=== PATIENT | female | born 1995 | race Caucasian/White ===

== ENCOUNTER 2018-02-15 22:18 | Emergency (ER) | payer OTHER ==
--- OUTSIDE RECORDS SUMMARY | 2018-02-15 22:19 | XMS REPORT ---
:1995 Author Organization eClinicalWorks Care Team Providers Name Role Phone [place], [facility] Provider Role Unavailable Allergies, Adverse Reactions, Alerts Substance Reaction Event Type penicillin Info Not Available Drug Allergy Problems Problem Type Condition Code Onset Dates Condition Status Assessment Seasonal allergies J30.2 Active Assessment Bronchial spasm J98.01 Active Assessment Other chronic pain G89.29 Active Problem Other chronic pain G89.29 Active Problem GERD without esophagitis K21.9 Active Problem Seasonal allergies J30.2 Active Assessment Pain in right knee M25.561 Active Assessment GERD without esophagitis K21.9 Active Problem Bronchial spasm J98.01 Active Medications Medication Code Code Instructions Start End Status Dosage System Date Date Omeprazole [facility] 22609599486 40 MG Orally Dec 11, Active 1 capsule Once a day 2017 Albuterol [facility] [id number] (2.5 MG/3ML) Active 3 ml as Sulfate 0.083% needed Inhalation Three times a day Results No Known Results Summary Purpose eClinicalWorks Submission
--- NOTE | 2018-02-15 23:19 | ER ---
Nurse's Notes [facility] Name: Selina Page Age: 22 yrs Sex: Female : 1995 Arrival Date: 02/15/2018 Time: 22:21 Bed 18 Private MD: Diagnosis: Local infection of the skin and subcutaneous tissue, unspecified Presentation: 02/15 22:46 Presenting complaint: Patient states: cyst to back of the neck infected for about a tl3 week. Transition of care: patient was not received from another setting of care. Onset of symptoms is unknown. Risk Assessment: Do you want to hurt yourself or someone else? Patient reports no desire to harm self or others. Initial Sepsis Screen: Does the patient meet any 2 criteria? No. Patient's initial sepsis screen is negative. Does the patient have a suspected source of infection? No. Patient's initial sepsis screen is negative. Care prior to arrival: None. 22:46 Method Of Arrival: Ambulatory tl3 22:46 Acuity: DREA 4 tl3 Triage Assessment: 22:49 General: Appears uncomfortable, Behavior is calm, cooperative. Pain: Complains of pain tl3 in back of neck. 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 - Social history:: Smoking status: Patient/guardian denies using tobacco, the patient reports quitting approximately 2 years ago. - Ebola Screening: : No symptoms or risks identified at this time. Screenin:54 Abuse screen: Denies threats or abuse. Denies injuries from another. Nutritional cc3 screening: No deficits noted. Tuberculosis screening: No symptoms or risk factors identified. Fall Risk Ambulatory Aid- None/Bed Rest/Nurse Assist (0 pts). Gait- Normal/Bed Rest/Wheelchair (0 pts) Mental Status- Oriented to own ability (0 pts). Assessment: 22:54 General: Appears in no apparent distress. comfortable, Behavior is calm, cooperative, cc3 appropriate for age. Pain: Complains of pain in abscess at the nape area Quality of pain is described as aching, tender, Pain began 1 week. Neuro: Level of Consciousness is awake, alert, obeys commands, Oriented to person, place, time, situation, Appropriate for age. Cardiovascular: Denies chest pain. Respiratory: Airway is patent Respiratory effort is even, unlabored, Respiratory pattern is regular, symmetrical. GI: Abdomen is round non-distended. : No signs and/or symptoms were reported regarding the genitourinary system. EENT: No signs and/or symptoms were reported regarding the EENT system. Derm: Abscess located on right posterior aspect of neck, nape area is half dollar sized, has no drainage, is hot to touch, is red. Musculoskeletal: Circulation, motion, and sensation intact. Range of motion: intact in all extremities. 23:25 Reassessment: Patient appears in no apparent distress at this time. Patient and/or cc3 family updated on plan of care and expected duration. Pain level reassessed. Patient is alert, oriented x 3, equal unlabored respirations, skin warm/dry/pink. JLUIS Farooq discharged the patient home with prescription given. No IV cannula in situ. Patient left ER vitally stable and ambulatory with her family. Vital Signs: 22:49 BP 130 / 104; Pulse 87; Resp 18; Temp 98.6(O); Pulse Ox 100% ; Weight 99.79 kg; Height tl3 5 ft. 5 in. (165.10 cm); 23:10 BP 133 / 92; Pulse 92; Resp 17 S; Pulse Ox 97% on R/A; cc3 22:49 Body Mass Index 36.61 (99.79 kg, 165.10 cm) tl3 ED Course: 22:21 Patient arrived in ED. am2 22:47 Triage completed. tl3 22:49 Arm band placed on right wrist. tl3 22:54 C[facility]. kb 22:54 Samuel Torres MD is Attending Physician. kb 22:54 Simona Casas is Primary Nurse. cc3 22:54 Patient has correct armband on for positive identification. Bed in low position. Call cc3 light in reach. Side rails up X 1. Pulse ox on. NIBP on. 23:25 No provider procedures requiring assistance completed. Patient did not have IV access cc3 during this emergency room visit. Administered Medications: 23:20 Drug: Bactrim (160 mg-800 mg (DS) 1 tablet Route: PO; cc3 23:27 Follow up: Response: No adverse reaction cc3 Outcome: 23:18 Discharge ordered by MD. christian 23:25 Discharged to home ambulatory, with family. cc3 23:25 Condition: stable 23:25 Discharge instructions given to patient, family, Instructed on discharge instructions, follow up and referral plans. medication usage, Demonstrated understanding of instructions, follow-up care, medications, Prescriptions given X 1. 23:27 Patient left the ED. cc3 Signatures: Caryn Farooq, FELI-C DELIMER-Cortney Razo Tammy, RN RN tl3 Simona Casas cc3 Corrections: (The following items were deleted from the chart) 23:31 22:54 Pain: Complains of pain in cyst at the nape area Quality of pain is described as cc3 aching, tender, Pain began 1 week cc3
--- NOTE | 2018-02-15 23:19 | EDPHYS ---
Physician Documentation [facility] Name: Selina Page Age: 22 yrs Sex: Female : 1995 Arrival Date: 02/15/2018 Time: 22:21 Bed 18 Private MD: ED Physician Samuel Torres HPI: 02/15 23:14 This 22 yrs old Female presents to ER via Ambulatory with complaints of Cyst. kb 23:14 The patient presents with an abscess of the right posterior aspect of neck. kb Description: erythematous, swollen, warm. Onset: The symptoms/episode began/occurred last week. Possible cause(s): unknown. Associated signs and symptoms: Pertinent positives: erythema, swelling, Pertinent negatives: discharge, drainage, foreign body sensation, fever, headache, nausea, shortness of breath, vomiting. Modifying factors: the symptoms are alleviated by nothing, the symptoms are aggravated by pressure, touching. Severity of symptoms: At their worst the symptoms were mild, in the emergency department the symptoms are unchanged. The patient has not experienced similar symptoms in the past. The patient has not recently seen a physician. Pt reports she has had a cyst on the back of her neck for 2+ neck. Reports redness and warmth started a week ago. 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 - Social history:: Smoking status: Patient/guardian denies using tobacco, the patient reports quitting approximately 2 years ago. - Ebola Screening: : No symptoms or risks identified at this time. ROS: 23:12 Constitutional: Negative for fever, chills, and weight loss, Cardiovascular: Negative kb for chest pain, palpitations, and edema, Respiratory: Negative for shortness of breath, cough, wheezing, and pleuritic chest pain, Abdomen/GI: Negative for abdominal pain, nausea, vomiting, diarrhea, and constipation, Back: Negative for injury and pain, : Negative for injury, bleeding, discharge, and swelling, MS/Extremity: Negative for injury and deformity, Neuro: Negative for headache, weakness, numbness, tingling, and seizure. 23:12 Skin: Positive for erythema, swelling, of the right posterior aspect of neck. Exam: 23:12 Constitutional: This is a well developed, well nourished patient who is awake, alert, kb and in no acute distress. Head/Face: Normocephalic, atraumatic. Chest/axilla: Normal chest wall appearance and motion. Nontender with no deformity. No lesions are appreciated. Cardiovascular: Regular rate and rhythm with a normal S1 and S2. No gallops, murmurs, or rubs. Normal PMI, no JVD. No pulse deficits. Respiratory: Lungs have equal breath sounds bilaterally, clear to auscultation and percussion. No rales, rhonchi or wheezes noted. No increased work of breathing, no retractions or nasal flaring. Abdomen/GI: Soft, non-tender, with normal bowel sounds. No distension or tympany. No guarding or rebound. No evidence of tenderness throughout. Skin: Warm, dry with normal turgor. Normal color with no rashes, no lesions, and no evidence of cellulitis. MS/ Extremity: Pulses equal, no cyanosis. Neurovascular intact. Full, normal range of motion. Neuro: Awake and alert, GCS 15, oriented to person, place, time, and situation. Cranial nerves II-XII grossly intact. Motor strength 5/5 in all extremities. Sensory grossly intact. Cerebellar exam normal. Normal gait. 23:12 Skin: abscess, that is moderate sized, of the right posterior aspect of neck. Vital Signs: 22:49 BP 130 / 104; Pulse 87; Resp 18; Temp 98.6(O); Pulse Ox 100% ; Weight 99.79 kg; Height tl3 5 ft. 5 in. (165.10 cm); 23:10 BP 133 / 92; Pulse 92; Resp 17 S; Pulse Ox 97% on R/A; cc3 22:49 Body Mass Index 36.61 (99.79 kg, 165.10 cm) tl3 MDM: 22:54 Patient medically screened. kb 23:11 Data reviewed: vital signs, nurses notes. Data interpreted: Pulse oximetry: on room air kb is 100 %. Interpretation: normal. Counseling: I had a detailed discussion with the patient and/or guardian regarding: the historical points, exam findings, and any diagnostic results supporting the discharge/admit diagnosis, the need for outpatient follow up, a general surgeon, to return to the emergency department if symptoms worsen or persist or if there are any questions or concerns that arise at home. 23:18 ED course: Pt states she knows she needs to see a surgeon, but is afraid of needles so kb she doesn't want to go.. Administered Medications: 23:20 Drug: Bactrim (160 mg-800 mg (DS) 1 tablet Route: PO; cc3 23:27 Follow up: Response: No adverse reaction cc3 Disposition: 02/16 05:15 Co-signature as Attending Physician, Samuel Torres MD I agree with the assessment and tw4 plan of care. Attestation: The patient's history, exam findings, diagnostics, and a summary of any interventions or procedures was reviewed in detail with Caryn RIVERA. Disposition: 02/15/18 23:18 Discharged to Home. Impression: Local infection of the skin and subcutaneous tissue, unspecified. - Condition is Stable. - Discharge Instructions: Skin Abscess, [id number]. - Prescriptions for Bactrim DS 800- 160 mg Oral Tablet - take 1 tablet by ORAL route every 12 hours for 10 days; 20 tablet. - Medication Reconciliation Form, Thank You Letter, Antibiotic Education, Prescription Opioid Use form. - Follow up: Emergency Department; When: As needed; Reason: Worsening of condition. Follow up: Private Physician; When: 2 - 3 days; Reason: Recheck today's complaints, Continuance of care, Re-evaluation by your physician. Signatures: Caryn Farooq, MIGUEL EDMOND-Samuel Garnett MD MD tw4 Eliana Koch, [place] RN tl3 Simona Casas cc3 Corrections: (The following items were deleted from the chart) 02/15 23:19 23:11 Counseling: I had a detailed discussion with the patient and/or guardian gino regarding: the historical points, exam findings, and any diagnostic results supporting the discharge/admit diagnosis, the need for outpatient follow up, a general surgeon, to return to the emergency department if symptoms worsen or persist or if there are any questions or concerns that arise at home, gino 23:27 23:18 02/15/2018 23:18 Discharged to Home. Impression: Local infection of the skin and cc3 subcutaneous tissue, unspecified. Condition is Stable. Forms are Medication Reconciliation Form, Thank You Letter, Antibiotic Education, Prescription Opioid Use. Follow up: Emergency Department; When: As needed; Reason: Worsening of condition. Follow up: Private Physician; When: 2 - 3 days; Reason: Recheck today's complaints, Continuance of care, Re-evaluation by your physician. kb
[2018-02-15] MEDS ORDERED: SMZ./TMP. 800/160 MG TABLET ONE (23:27)
== END 2018-02-15 23:27 | disposition home or self-care (01) ==
LOC: ER 22:18
DX: L08.9 Local infection of the skin and subcutaneous tissue, unspecified (principal); Z87.891 Personal history of nicotine dependence; Z88.0 Allergy status to penicillin; Z88.1 Allergy status to other antibiotic agents
CPT/HCPCS: 99283